=== PATIENT | female | born 1955 | race Caucasian/White ===

== ENCOUNTER 2018-11-09 15:07 | Emergency (ER) | payer OTHER ==
[~2018-11-09] VITALS: Ht 162.6 cm; Wt 84.8 kg
--- OUTSIDE RECORDS SUMMARY | ~2018-11-09 | XMS | Clinical Summary ---
Demographics + + + | Address | [address] | | | [place] [address] | + + + | Home Phone | | + + + | Preferred Language | Unknown | + + + | Marital Status | Single | + + + | Scientology Affiliation | Unknown | + + + | Race | White | + + + | Ethnic Group | Not or | + + + Author + + + | Author | [facility] | + + + | Organization | [facility] | + + + | Address | Unknown | + + + | Phone | Unavailable | + + + Care Team Providers + +------+ + | Care School Teacher Name | Role | Phone | + +------+ + PP | Unavailable | + +------+ + Source Comments LEW is fully live on both [facility] and [facility] Allergies Not on File Current Medications Not on file Active Problems Not on file Social History + +-------+ +--------+------+ | Tobacco Use | Types | Packs/Day | Years | Date | | | | | Used | | + +-------+ +--------+------+ | Never Assessed | | | | | + +-------+ +--------+------+ + + + | Sex Assigned at | Date Recorded | | | | + + + | Not on file | | + + + Plan of Treatment Not on file Results Not on filefrom Last 3 Months"
--- OUTSIDE RECORDS SUMMARY | ~2018-11-09 | XMS | Clinical Summary ---
Demographics + + + | Address | [address] | | | [place] [address] | + + + | Home Phone | | + + + | Preferred Language | Unknown | + + + | Marital Status | Single | + + + | Advent Affiliation | Unknown | + + + [...] Team Providers + +------+ + | Care Commercial Field Inspector Name | Role | Phone | + +------+ + PP | Unavailable | + +------+ + Source Comments [facility]W is fully live on both [facility] and [facility] Allergies Not on File Current [...]
--- OUTSIDE RECORDS SUMMARY | ~2018-11-09 | XMS ---
Demographics + + + | Address | [address] | | | [place] [address] | + + + | Preferred Language | Unknown | + + + | Marital Status | Unknown | + + + | Cheondoism Affiliation | Unknown | + + + | Race | Unknown | + + + | Ethnic Group | Unknown | + + + Author + + + | Author | [facility] | + + + | Organization | [facility] | + + + | Address | 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 | 95065393 | | | of bone | | | | | | +---------+ + + +--------+ + + | Problem | Hypertensi | | I10 | | Active | 37293710 | | | on | | | | | | +---------+ + + +--------+ + + | Problem | Anxiety | | F41.9 | | Active | 09986513 | +---------+ + + +--------+ + + | Problem | Obesity | | E66.9 | | Active | 420464647 | +---------+ + + +--------+ + + | Problem | Hyperlipid | | E78.5 | | Active | 30675148 | | | emia | | | | | | +---------+ + + +--------+ + + | Problem | Insomnia | | F51.05 | | Active | 05691700 | | | due to | | | | | | | | mental | | | | | | | | disorder | | | | | | +---------+ + + +--------+ + + ALLERGIES + + + + +---------+ | Substance | Reaction | Event Type | Date | Status | + + + + +---------+ | NCaseyKCheryA. | Unknown | Non Drug | Feb, | Unknown | | | | Allergy | | | + + + + +---------+ SOCIAL HISTORY No smoking Hx information available PLAN OF CARE + +---------+ | Activity | Details | + +---------+ +---+ | | +---+ + + + | Follow Up | 6 Months Reason:null | + + + | Pending Test | Comp. Metabolic Panel (14) | + + + VITAL SIGNS + + + + | Height | 64 in | 2017-02-21 | + + + + | Weight | 213.4 lbs | 2017-02-21 | + + + + | BMI | 36.63 kg/m2 | 2017-02-21 | + + + + | Temperature | 98.7 degrees Fahrenheit | 2017-02-21 | + + + + | Heart Rate | 89 /min | 2017-02-21 | + + + + | Blood pressure systolic | 134 mm Hg | 2017-02-21 | + + + + | Blood pressure diastolic | 92 mm Hg | 2017-02-21 | + + + + MEDICATIONS + + + + +--------+ + +--------+ | Medicati | Instruct | Dosage | Frequenc | Start | End Date | Duration | Status | | on | ions | | y | Date | | | | + + + + +--------+ + +--------+ | Losartan | Orally | 1 tablet | 24h | | | 30 | Active | | | Once a | | | | | day(s) | | | Potassiu | day | | | | | | | | m-HCTZ | | | | | | | | | 50-12.5 | | | | | | | | | MG | | | | | | | | + + + + +--------+ + +--------+ | Amitript | p.o. qhs | 1 tablet | | | | 30 | Active | | yline | | | | | | | | | HCl | | | | | | | | | 100MG | | | | | | | | + + + + +--------+ + +--------+ | Lovastat | | TAKE ONE | | | | 30 | Active | | in 20MG | | TABLET | | | | | | | | | BY MOUTH | | | | | | | | | AFTER A | | | | | | | | | MEAL | | | | | | + + + + +--------+ + +--------+ | Meloxica | | TAKE ONE | | | | 30 | Active | | m 15MG | | TABLET | | | | | | | | | BY MOUTH | | | | | | | | | ONCE | | | | | | | | | DAILY | | | | | | + + + + +--------+ + +--------+ | Metoprol | Orally | 1 tablet | 12h | | | 30 | Active | | ol | Twice a | with | | | | day(s) | | | Tartrate | day | food | | | | | | | 25 MG | | | | | | | | + + + + +--------+ + +--------+ RESULTS No Results PROCEDURES + + + + + | Procedure | Date Ordered | Related Diagnosis | Body Site | + + + + + | Est Level III | February 21, 2017 | | | | Intermediate | | | | + + + + + | [facility] MED/CURRENT | February 21, 2017 | | | | MED MERGE | | | | + + + + + | DOC MEDS VERIFIED | February 21, 2017 | | | | W/PT OR RE | | | | + + + + + IMMUNIZATIONS No Known Immunizations"
--- OUTSIDE RECORDS SUMMARY | ~2018-11-09 | XMS ---
Demographics + + + | Address | [address] | | | [place] [address] | + + + | Preferred Language | Unknown | + + + | Marital Status | Unknown | + + + | Islam Affiliation | Unknown | + + + | Race | Unknown | + + + | Ethnic Group | Unknown | + + + Author + + + | Author | [facility] | + + + | Organization | [facility] | + + + | Address | [address] | | | [place] [address] | + + + | Phone | | + + + Care Team Providers + + + + | Care Entry Writer Name | Role | Phone | + + + + Unavailable | Unavailable | + + + + PROBLEMS + + + + + + + + | Type | Condition | ICD9-CM | VTV31-[id number] | Onset | Condition | SNOMED | | | | Code | Code | Dates | Status | Code | + + + + + + + + | Assessment | Hypertensi | | I10 | 18 December, | Active | [id number] | | | on | | | 2017 | | | + + + + + + + + | Problem | Arthritis | M19.90 | | | Active | 654279051 | | | of ankle | | | | | | + + + + + + + + | Problem | Insomnia | | G47.00 | | Active | [id number] | + + + + + + + + | Problem | Disorder | M89.9 | | | Active | 48660286 | | | of bone | | | | | | + + + + + + + + | Problem | Hypertensi | | I10 | | Active | 77239453 | | | on | | | | | | + + + + + + + + | Problem | Anxiety | | F41.9 | | Active | 03365965 | + + + + + + + + | Problem | Obesity | | E66.9 | | Active | 112217875 | + + + + + + + + | Problem | Hyperlipid | | E78.5 | | Active | 09141209 | | | emia | | | | | | + + + + + + + + | Problem | Insomnia | | F51.05 | | Active | 58007299 | | | due to | | | | | | | | mental | | | | | | | | disorder | | | | | | + + + + + + + + ALLERGIES + + + + +---------+ | Substance | Reaction | Event Type | Date | Status | + + + + +---------+ | N.K.D.A. | Unknown | Non Drug | December, | Unknown | | | | Allergy | | | + + + + +---------+ SOCIAL HISTORY No smoking Hx information available PLAN OF CARE VITAL SIGNS + + + + | Height | 64 in | 2016-12-22 | + + + + | Weight | 210.4 lbs | 2016-12-22 | + + + + | BMI | 36.11 kg/m2 | 2016-12-22 | + + + + | Temperature | 99.3 degrees Fahrenheit | 2016-12-22 | + + + + | Heart Rate | 95 /min | 2016-12-22 | + + + + | Blood pressure systolic | 136 mm Hg | 2016-12-22 | + + + + | Blood pressure diastolic | 101 mm Hg | 2016-12-22 | + + + + MEDICATIONS + [...] 1 tablet | 24h | | | | Active | | | Once a | | | | | | | | Potassiu | day | [...] + + | Est Level III | December 22, 2016 | | | | Intermediate | | | | + + + + + | [facility] MED/CURRENT | December 22, 2016 | | | | MED MERGE | | | | + + + + + | DOC MEDS VERIFIED | December 22, 2016 | | | | W/PT OR RE | | | | + + + + + IMMUNIZATIONS No Known Immunizations"
[~2018-11-09 15:07] MED LIST: LISINOPRIL-HCT1 EACH PO; LOVASTATIN20 MG PO; NORCO 5-325 TA1 EACH PO; POTASSIUM CHLOR8 MEQ PO; TRAZODONE HCL50 MG PO
[2018-11-09] MEDS ORDERED: MELOXICAM15 MG PO (15:12)
[2018-11-09] MEDS ORDERED: METOPROLOL SUCC25 MG PO (15:13)
[2018-11-09] MEDS ORDERED: LOSARTAN POTASS50 MG PO (15:13)
--- NOTE | 2018-11-09 19:09 | EKG ---
[facility] [address] [facility] [place] [address] Signed Sinus rhythm with 1st degree AV block Otherwise normal ECG No previous ECGs available Confirmed by NATALYA GRIMALDO MD ([id number]) on 11/09/2018 7:09:02 PM Electronically Signed By: NATALYA GRIMALDO MD 11/09/18 1909 PATIENT NAME: MAGDIEL RODRIGUES Electrocardiogram DATE OF : 59 PHYSICIAN: NATALYA GRIMALDO MD REPORT #: [id number] REPORT IS CONFIDENTIAL AND NOT TO BE RELEASED WITHOUT AUTHORIZATION
== END 2018-11-09 19:35 | disposition home or self-care (01) ==
LOC: ED 15:07
DX: R07.89 Other chest pain (principal); I10 Essential (primary) hypertension; E78.5 Hyperlipidemia, unspecified; Z79.899 Other long term (current) drug therapy
CPT/HCPCS: 71045; 80053; 84484; 85025; 93005; 93010; 99285-25

== ENCOUNTER 2022-02-12 09:02 | Emergency (ER) | payer OTHER ==
[~2022-02-12] VITALS: Ht 162.6 cm; Wt 84.8 kg
[~2022-02-12 09:02] MED LIST changes: +LOSARTAN POTASS50 MG PO; +MELOXICAM15 MG PO; +METOPROLOL SUCC25 MG PO
== END 2022-02-12 11:54 | disposition home or self-care (01) ==
LOC: ED 09:02
DX: T17.998A Other foreign object in respiratory tract, part unspecified causing other injury, initial encounter (principal); I10 Essential (primary) hypertension; E78.5 Hyperlipidemia, unspecified; Z79.899 Other long term (current) drug therapy; X58.XXXA Exposure to other specified factors, initial encounter
CPT/HCPCS: 99283